=== PATIENT | female | born 1995 | race Caucasian/White ===

== ENCOUNTER 2016-07-19 11:00 | Emergency (ER) | payer OTHER ==
[~2016-07-19] VITALS: Wt 64.0 kg
[~2016-07-19 11:00] MED LIST: ULT50 PO
[2016-07-19] MEDS ORDERED: CEFTRIAXONE 250 MG INJ IM ONE (12:00)
[2016-07-19] MEDS ORDERED: AZITHROMYCIN 250 MG TAB PO ONE (12:00)
[2016-07-19 12:02] LABS: URINE BLOOD (Dip) POC 2+ (NEGATIVE)
--- NOTE | 2016-07-19 13:01 | ERD ---
ER Documentation Chief Complaint Date/Time DATE: 07/19/16 TIME: 12:56 Chief Complaint VAGINAL DISCHARGE, BURNING WITH URINATION, ONSET 1 WEEK HPI This is a 21-year-old female that presents to the ER stating she has had urinary frequency and dysuria for the last 2 days. Patient also complaining of vaginal discharge. Patient's vaginal discharge is not foul-smelling. Is unable to describe the color of vaginal discharge as she is currently on her menstrual period. Patient denies any flank pain. She denies any fevers or chills. She denies nausea or vomiting. Patient does admit to pelvic pain during sexual intercourse. She is also complaining of pelvic cramping. Patient is currently sexually active with her boyfriend. Her boyfriend apparently had similar symptoms. ROS 12 point review of systems was done, all negative except per HPI. Medications Home Meds Active Scripts Tramadol HCl (Tramadol HCl) 50 Mg Tab, 50 MG PO Q4 Y for PAIN, #14 TAB Prov:DAYANARA TRACY PA-C 03/15/15 Allergies Allergies: Coded Allergies: Penicillins (Verified Allergy, Unknown, 06/10/14) PMhx/Soc History of Surgery: Yes () Anesthesia Reaction: No Hx Neurological Disorder: No Hx Respiratory Disorders: No Hx Cardiac Disorders: No Hx Psychiatric Problems: No Hx Miscellaneous Medical Probl: Yes (GERD, HEP C) Hx Alcohol Use: No Hx Substance Use: No Hx Tobacco Use: No Smoking Status: Never smoker Physical Exam Vitals Vital Signs Date Time Temp Pulse Resp B/P Pulse Ox O2 Delivery O2 Flow Rate FiO2 07/19/16 11:04 98.5 96 17 136/83 99 Physical Exam GENERAL: The patient is well developed and appropriate for usual state of health , in no apparent distress. HEENT: Atraumatic. CHEST: Clear to auscultation bilaterally. There are no rales, wheezes or rhonchi. HEART: Regular rate and rhythm. No murmurs, clicks, rubs or gallops. ABDOMEN: Soft, nontender and nondistended. Good bowel sounds. No rebound or guarding. No gross peritonitis. No gross organomegaly or masses. No Oliva sign or McBurney point tenderness. BACK: No midline or flank tenderness. NEURO: Alert and oriented. Results 24 hrs Laboratory Tests Test 07/19/16 12:02 Bedside Urine Blood 2+ Bedside Urine Glucose (UA) Negative Bedside Urine Ketones (LAB) Trace Bedside Urine Leukocyte Esterase (L Negative Bedside Urine Nitrite (LAB) Negative Bedside Urine Protein (LAB) Negative Bedside Urine pH (LAB) 6.0 Current Medications Medications (Trade) Dose Ordered Sig/Lorena Route PRN Reason Start Time Stop Time Status Last Admin Dose Admin Ceftriaxone Sodium (Rocephin) 250 mg ONCE ONCE IM 07/19/16 12:00 07/19/16 12:01 DC 07/19/16 11:56 Azithromycin (Zithromax) 1,000 mg ONCE ONCE PO 07/19/16 12:00 07/19/16 12:01 DC 07/19/16 11:56 Procedures/MDM Differential diagnosis includes but is not limited to; urinary tract infection, STI, yeast infection, bacterial vaginosis, ovarian torsion, PID. Patient was empirically treated for gonorrhea and chlamydia with no complications here in the ER. I asked patient what her reaction was to penicillin, patient stated that when she was little she got thrush. Patient refused pelvic exam. At this time I am not able to rule out PID as patient has refused examination. Urine will be sent to the lab for gonorrhea and Chlamydia testing. Patient was not in the waiting room and he wanted to discuss the findings. Patient did not have a urinary tract infections is likely an STD. I doubt ovarian torsion as patient is well-appearing and her physical examination is benign. Patient is to follow-up with her primary care doctor within 1-2 days or return to ER sooner if symptoms worsen. My medical decision making was shared with the patient she understands and agrees with plan. Departure Diagnosis: Primary Impression: STD exposure Condition: Stable Patient Instructions: Teens: STD Symptoms in Women Additional Instructions: Call your primary care doctor TOMORROW for an appointment during the next 1-2 days.See the doctor sooner or return here if your condition worsens before your appointment time. NILA SALINAS Jul 19, 2016 13:01
== END 2016-07-19 13:06 | disposition home or self-care (01) ==
LOC: FTE 11:00
DX: Z20.2 Contact with and (suspected) exposure to infections with a predominantly sexual mode of transmission (principal); R10.2 Pelvic and perineal pain
CPT/HCPCS: 81003; 96372; J0696; Z7502; Z7610

== ENCOUNTER 2017-08-23 06:00 | Emergency (ER) | END 2017-08-23 08:21 | disposition home or self-care (01) ==

== ENCOUNTER 2017-09-22 19:58 | Emergency (ER) | END 2017-09-22 22:35 | disposition left against medical advice (07) ==

== ENCOUNTER 2018-02-04 19:08 | Emergency (ER) | END 2018-02-04 20:05 | disposition left against medical advice (07) ==